=== PATIENT | female | born 1995 | race Caucasian/White ===

== ENCOUNTER 2020-10-26 17:16 | Inpatient (IN) | payer OTHER ==
[2020-10-26] VITALS (26 sets, daily range): BP systolic 110–155; BP diastolic 53–85; PULSE 109–139; TEMP 98.1–99.1
[~2020-10-26] VITALS: Ht 157.5 cm; Wt 95.9 kg
--- NOTE | 2020-10-26 16:50 | NUR ---
Patient arrives via wheelchair from ER with complaints of contractions that have worsened over the past few hours. Patient denies ROM or vaginal bleeding. Reports normal movement. Patient breathing through contractions and reports urge to have bowel movement with contractions. Assisted to bed, SVE by this RN 4- with BOWI at 1652. Dr. Wisdom on unit, notified of patient arrival. Reviewed history and SVE> Physician reviews FHR strip. Admit orders recieved. Patient desires epidural. Liliane Crocker CRNA notified. 1702- IV started in RH by Rebecca Anderson RN. labs obtained and sent. LR infusing. 1717- Dr. Wisdom at bedside. Vertex presentation confirmed via bedside sono. Discussed plan for epidural and then potential AROM. Patient agrees. 1739- Liliane Crocker CRNA at bedside. Patient assisted to sit on edge of bed. 1751- Epidural test dose by Liliane Crocker CRNA. Patient tolerates well, no adverse reactions noted. See ansethesia record. 175- Patient repositioned WL. 1814- Dr. Wisdom at bedside. SVE per provider . AROM by Dr. Wisdom for moderate amount of fluid noted. Pericare given and patient updated on plan of care. 1819- Report to .Magan Hernandez RN.
[~2020-10-26 17:16] MED LIST: PRENATAL; UNISOM25 MG PO
[2020-10-26 17:28] LABS: BASO % 0.2 % (0.0-2.0); EOS # 0.1 (0.0-0.7); EOS % 0.4 % (0-4.0); GRAN # 13.4 (1.4-6.5); GRAN % 80.8 % (42.2-75.2); HEMOGLOBIN 13.5 g/dl (12.5-16.0); LYMPH # 1.6 (1.2-3.4); LYMPH % 9.5 % (20.0-51.0); MEAN CELL VOLUME 83 fl (80.0-100.0); MEAN CORPUSCULAR HEMOGLOBIN 27 pg (27.0-31.0); MEAN CORPUSCULAR HGB CONC 33 g/dl (33.0-37.0); MEAN PLATELET VOLUME 10.3 fl (7.4-10.4); MONO # 1.3 (0.1-0.6); PLATELET COUNT 220 K/mm3 (130-400); RED BLOOD COUNT 4.92 M/mm3 (4.10-5.30); REDCELL DISTRIBUTION WIDTH-CV 14.6 % (11.5-14.5)
[2020-10-27] VITALS (22 sets, daily range): BP systolic 109–157; BP diastolic 58–92; PULSE 89–131; TEMP 97.4–99.1
--- NOTE | 2020-10-27 02:15 | NUR ---
0215- DR. MORATAYA AND THIS RN TO BEDSIDE TO CHECK SVE. PER PROVIDER, PATIENT COMPLETE AND READY TO PUSH. 0219- FIRST PRACTICE PUSH WITH DR. MORATAYA. PATIENT PRACTICE PUSHED TWICE WITH DR. MORATAYA BEFORE NURSERY WAS CALLED AND THE ROOM WAS SET UP FOR DELIVERY. 0222- HILLMAN REMOVED WITH 350 NOTED IN THE BAG. 0229- HEAD WAS OUT OF VAGINA. THIS RN AND NIKITA TECH PUSHING PATIENT LEGS BACK AND APPLYING PUBIC PRESSURE. GUILLERMINA, RN KEEPING COUNT FOR SHOULDER DISTOCIA. 0230- OF VIABLE MALE INFANT. 1 MINUTE 30 SECOND SHOULDER NOTED BY RN WITH THE TIMER. INFANT STIMULATED BY PROVIDER WITH NO CRY NOTED AT THE TIME. CORD CLAMPED AND CUT AND TO WARMER WHERE NURSERY NURSE ASSUMES CARE AT THIS TIME. 0241- OF PLACENTA. PITOCIN STARTED PER PROTOCL AT 333ML/HR. FUNDUS MASSAGED TO FIRM BY THIS RN WITH MODERATE AMOUNT OF LOCHIA NOTED. PROVIDER BEGINS REPAIRS DURING THIS TIME. 2ND DEGREE TEAR NOTED BY PROVIDER WITH SOME LACERATION TO PERINEUM/LABIAL AREA THAT WERE REPAIRED WELL. EBL NOTED PROVIDER DOCUMENTED ON NOTES. 0300- FUNDUS FIRM WITH SMALL LOCHIA NOTED. VITALS STABLE. PATIENT AND ROOM CLEANED UP AND PUT BACK TOGETHER. NEW PAD AND ICEPACK TO PERINEUM. RECOVERY STARTED.
--- NOTE | 2020-10-27 10:39 | NUR ---
Initial visit attempt; Family resting, [employer] left card of congratulations for the of their son and information regarding the availability of spiritual care at our hospital.
[2020-10-28 07:30] VITALS: BP 124/89; PULSE 103; TEMP 97.8
[2020-10-28 17:18] VITALS: BP 131/86; PULSE 79; TEMP 98.2
[2020-10-28 19:40] VITALS: BP 140/85; PULSE 92; TEMP 97.8
[2020-10-29 06:30] VITALS: BP 133/83; PULSE 100; TEMP 98.3
[2020-10-29] MEDS ORDERED: IBU800 M1 PO (12:03)
== END 2020-10-29 13:25 | disposition home or self-care (01) | DRG 807 ==
LOC: LDRO 17:16 → LDR 17:34 → OB 17:34
PROVIDERS: ADMIT Obstetrics & Gynecology
PROC: 10E0XZZ Delivery of Products of Conception, External Approach (ICD-10-PCS; principal; 2020-10-26)
PROC: 0KQM0ZZ Repair Perineum Muscle, Open Approach (ICD-10-PCS; 2020-10-26)
PROC: 10907ZC Drainage of Amniotic Fluid, Therapeutic from Products of Conception, Via Natural or Artificial Opening (ICD-10-PCS; 2020-10-26)
DX: O99.62 Diseases of the digestive system complicating childbirth (principal); Z37.0 Single live birth; K21.9 Gastro-esophageal reflux disease without esophagitis; O66.0 Obstructed labor due to shoulder dystocia; O70.1 Second degree perineal laceration during delivery; O36.63X0 Maternal care for excessive fetal growth, third trimester, not applicable or unspecified; Z3A.39 39 weeks gestation of pregnancy
CPT/HCPCS: J2210; J2590; J2795; J7120